=== PATIENT | male | born 1995 | race African-American/Black ===

== ENCOUNTER 2016-12-04 20:05 | Emergency (ER) | payer MEDICAID ==
--- NOTE | 2016-12-04 20:57 | ED Physician Chart ---
Chief Complaint/HPI - Patient Information Date Seen:: 12/04/16 Time Seen:: 20:52 Chief Complaint:: rt ankle injury History of Present Illness:: pt w rt ankle injury 2 wks ago. was playing sports and another player rolled over on his foot w his body. pt fell but denies any injury/pain except at rt ankle. he can bear weight. hurts to walk. no SHARMA, neck pain, abd p, cp etc.. moderate ache pain. Allergies:: Allergies Allergy/AdvReac Type Severity Reaction Status Date / Time Sulfa (Sulfonamide Allergy Verified 12/04/16 20:17 Antibiotics) Vitals:: Vital Signs - 8 hr 12/04/16 20:10 Temp 98.8 F HR 87 RR 18 BP 142/54 Historian:: Patient, Family Member (m) Review of Systems - Review of Systems General/Constitutional: No fever, No chills, No weight loss, No weakness, No diaphoresis, No edema, No loss of appetite Skin: No skin lesions, No rash, No bruising Head: No headache, No light-headedness Eyes: No loss of vision, No pain, No diplopia ENT: No earache, No nasal drainage, No sore throat, No tinnitus Neck: No neck pain, No swelling, No thyromegaly, No stiffness, No mass noted Cardio Vascular: No chest pain, No palpitations, No PND, No orthopnea, No edema Pulmonary: No SOB, No cough, No sputum, No wheezing GI: No nausea, No vomiting, No diarrhea, No pain, No melena, No hematochezia, No constipation, No hematemesis G/U: No dysuria, No frequency, No hematuria Musculoskeletal: Bone or joint pain (rt ankle pain), No back pain, No muscle pain Endocrine: No polyuria, No polydipsia Psychiatric: No prior psych history, No depression, No anxiety, No suicidal ideation Hematopoietic: No bruising, No lymphadenopathy Allergic/Immuno: No urticaria, No angioedema Neurological: No syncope, No focal symptoms, No weakness, No paresthesia, No headache, No seizure, No dizziness, No confusion, No vertigo Past Medical History - Past Medical History Past Medical History: No significant medical hx Social History: Lives With Parents Surgical History: None Medication: Reviewed Family Medical History - Family Member Mother History Unknown: Yes Ethnicity: Non- Living Status: Still Living Physical Exam - Physical Examination General/Constitutional: Awake, Well-developed, well-nourished, Alert, No distress, GCS 15, Non-toxic appearing, Ambulatory Head: Atraumatic Eyes: Lids, conjuctiva normal, PERRL, EOMI Skin: Nl inspection, No rash, No skin lesions, No ecchymosis, Well hydrated, No lymphadenopathy ENMT: External ears, nose nl, Nasal exam nl, Lips, teeth, gums nl Neck: Nontender, Full ROM w/o pain, No JVD, No nuchal rigidity, No bruit, No mass, No stridor Respiratory: Nl effort/Exclusion, Clear to Auscultation, No Wheeze/Rhonchi/Rales Cardio Vascular: RRR, No murmur, gallop, rubs, NL S1 S2 GI: No tenderness/rebounding/guarding, No organomegaly, No hernia, Normal BS's, Nondistended, No mass/bruits, No McBurney tenderness : No CVA tenderness Extremities: No tenderness or effusion, Full ROM, normal strength in all extremities, No edema, Normal digits & nails Other Extremities comments:: rt ankle is tndr at lateral malleolus and just anterior also. no vis edema or discoloration. ok rom. cap refill brisk. no tib/fib tndrness nor knee or prox leg tndrness. Neuro/Psych: Alert/oriented, DTR's symmetric, Normal sensory exam, Normal motor strength, Judgement/insight normal, Mood normal, Normal gait, No focal deficits Misc: normal gait, Normal back, No paraspinal tenderness Labs/Radiology/EKG Results - Radiology Results Results: rt ankle no fx//wnl ED Septic Shock - . Is Septic Shock (SBP<90, OR Lactate>4 mmol\L) present?: No - <6hrs of presentation: Vital Signs: Vital Signs - 8 hr 12/04/16 20:10 Temp 98.8 F HR 87 RR 18 BP 142/54 Reassessment (Disposition) - Reassessment Reassessment Condition:: Improved - Diagnosis Diagnosis:: rt ankle sprain - Aftercare/Follow up Instructions Aftercare/Follow-Up Instructions:: Counseled pt & family regarding lab results/ diagnosis & need follow up Notes:: use yuri and crutches. see pmd in 1 wk for rechk. ice and /or motrin for pain. return if further problems. - Patient Disposition Discharge/Transfer:: Home Condition at Disposition:: Improved
--- NOTE | 2016-12-05 11:29 | Diagnostic Imaging Report ---
Right ankle (3 views) HISTORY: Pain No acute bony abnormalities. No fractures. Joint spaces appear normal. IMPRESSION: No acute abnormalities In the presence of recent trauma and persistent symptoms, a repeat radiograph in 5-7 days may be helpful for detection of a subtle or occult fracture.
== END 2016-12-04 21:00 | disposition home or self-care (01) ==
LOC: ER 20:05
DX: S93.401A Sprain of unspecified ligament of right ankle, initial encounter (principal); Z88.2 Allergy status to sulfonamides; X58.XXXA Exposure to other specified factors, initial encounter; Y93.79 Activity, other specified sports and athletics; Y92.89 Other specified places as the place of occurrence of the external cause; Y99.8 Other external cause status
CPT/HCPCS: 73610-RT-TC; Z7502

== ENCOUNTER 2016-12-10 04:22 | Emergency (ER) | payer MEDICAID ==
--- NOTE | 2016-12-10 04:50 | ED Physician Chart ---
Chief Complaint/HPI - Patient Information Date Seen:: 12/10/16 Time Seen:: 04:25 Chief Complaint:: hand laceration History of Present Illness:: 20-year-old male with acute, moderate, multiple right hand lacerations that happened about 20 minutes prior to arrival when he cut his hand on a broken car window. Has associated burning pain. Allergies:: Allergies Allergy/AdvReac Type Severity Reaction Status Date / Time Sulfa (Sulfonamide Allergy Verified 12/10/16 04:42 Antibiotics) Historian:: Patient Review:: Nurse's Note Reviewed Review of Systems - Review of Systems Other: Complete system review otherwise unremarkable except as noted in HPI. Past Medical History - Past Medical History Past Medical History: No significant medical hx Family History: None Social History: Non Smoker, No Alcohol, No Drug Use, Other (student) Surgical History: None Psychiatricy History: None Medication: None Family Medical History - Family Member Mother History Unknown: Yes Ethnicity: Non- Living Status: Still Living Physical Exam - Physical Examination Other:: INITIAL VITAL SIGNS: Reviewed by me GENERAL: Alert and interactive. No acute distress HEAD: Head is normocephalic and atraumatic EYES: EOMI. . No scleral icterus. No conjunctival injection ENT: Moist mucous membranes. NECK: Supple. No masses. Full range of motion RESPIRATORY: No tachypnea. Clear breath sounds bilaterally. No wheezing, rales, or rhonchi CV: Regular rate and rhythm. No murmurs, rubs, or gallops ABDOMEN: Soft, non-distended, non-tender. No guarding. No rebound. No masses. EXTREMITIES: Right hand has multiple superficial lacerations to the dorsum. There is good movement of the entire hand with good neurovascular status to the distal tips of the fingers. SKIN: Warm and dry. No obvious rashes. NEUROLOGIC: Alert and oriented. Face is symmetric. Speech is normal. Moves all extremities equally. Motor and sensory distally intact. Assessment - Procedures Procedures:: Laceration Repair with dermabond by me: Anesthesia: None Location: Right hand Tendon/Joint/Nerves: No injury Foreign body: None detected after copious irrigation and exploration Technique: Tissue adhesive Complexity: No subcutaneous sutures/mucosal repair/edge excision Post Closure Length: 1 cm Patient's bleeding was easily controlled in the department and there is no indication of anemia. No evidence of compartment syndrome, neurologic injury, vascular injury, open joint, tendon laceration, or foreign body. Patient is appropriate for outpatient follow up. 48 hour wound check. Scar minimization instructions given. Laceration Repair with dermabond by me: Anesthesia: None Location: Right hand Tendon/Joint/Nerves: No injury Foreign body: None detected after copious irrigation and exploration Technique: Tissue adhesive Complexity: No subcutaneous sutures/mucosal repair/edge excision Post Closure Length: 0.5 cm Patient's bleeding was easily controlled in the department and there is no indication of anemia. No evidence of compartment syndrome, neurologic injury, vascular injury, open joint, tendon laceration, or foreign body. Patient is appropriate for outpatient follow up. 48 hour wound check. Scar minimization instructions given. ED Septic Shock - . Is Septic Shock (SBP<90, OR Lactate>4 mmol\L) present?: No Reassessment (Disposition) - Reassessment Reassessment:: 2 lacerations Dermabond. One was 1 cm long was 0.5 cm. Patient tolerated well. All lacerations are superficial. All lacerations are explored no is no evidence of any foreign body. Provided prescription for Augmentin for prophylaxis if there are signs of infection. Follow-up PCP 1-2 days. Gave return to ER precautions. Patient understands and agrees the plan. Reassessment Condition:: Improved - Diagnosis Diagnosis:: Lacerations, right hand - Aftercare/Follow up Instructions Aftercare/Follow-Up Instructions:: Counseled pt regarding lab results/diagnosis & need follow up, Refer to Discharge Instructions Medication Prescribed:: Augmentin - Patient Disposition Discharge/Transfer:: Home Time:: 04:54 Condition at Disposition:: Improved ED Discharge Plan - Patient Disposition Admit/Discharge/Transfer: PT DISCHARGED HOME Condition at Disposition: Improved Instructions: Tissue Adhesive Wound Care, [id number]
== END 2016-12-10 05:20 | disposition home or self-care (01) ==
LOC: ER 04:22
DX: S61.411A Laceration without foreign body of right hand, initial encounter (principal); W25.XXXA Contact with sharp glass, initial encounter; Y93.89 Activity, other specified; Y92.89 Other specified places as the place of occurrence of the external cause; Y99.8 Other external cause status
CPT/HCPCS: 99283; 12001; Q0162; A4217; X7704; Z7502; Z7610

== ENCOUNTER 2017-08-10 17:03 | Emergency (ER) | payer MEDICAID ==
--- NOTE | 2017-08-10 17:47 | ED Physician Chart ---
ED Chief Complaint/HPI - Patient Information Date Seen:: 08/10/17 Time Seen:: 17:20 Chief Complaint:: LEFT KNEE INJURY PLAYING FOOTBALL LAST NIGHT History of Present Illness:: THIS 21 YEAR OLD MALE WAS PLAYING COLLEGE FOOT WHEN HE SUSTAINED AN INJURY TO HIS LEFT KNEE WHILE BEING TACKLED. PT IS ABLE TO WEIGHT BEAR BUT IS UNABLE TO FLEX HIS KNEE MORE THAN 5-10 DEGREES. PT RATES SEVERITY OF THE PAIN 8/10. WORSE WITH MOVEMENT. LESS PAIN WITH DECREASED MOVEMENT. THE PT FELT A "POP" WHEN THE INJURY OCCURRED. MINIMAL SWELLING OF THE KNEE. ALSO HAS MILD PAIN IN THE 2ND MP OF HIS LEFT HAND. DENIES ANY HEAD OR NECK INJURIES. NO HEADACHE OR LOC. NO NUMBNESS OR WEAKNESS IN OTHER EXTREMITIES. Allergies:: Allergies Allergy/AdvReac Type Severity Reaction Status Date / Time Sulfa (Sulfonamide Allergy Verified 12/10/16 04:42 Antibiotics) SULFA DRUGS Vitals:: Vital Signs - 8 hr 08/10/17 17:13 Temp 97.5 F HR 71 RR 18 BP 144/61 Historian:: Patient ED Review of Systems - Review of Systems General/Constitutional: No fever, No chills, No weakness, No diaphoresis, Loss of appetite Skin: No skin lesions, No rash, No bruising Head: No headache, No light-headedness Eyes: No loss of vision, No pain, No diplopia ENT: No earache, No sore throat, No tinnitus Neck: No neck pain, No swelling, No stiffness, No mass noted Cardio Vascular: No chest pain, No orthopnea, No edema Pulmonary: No SOB, No cough, No sputum, No wheezing GI: No nausea, No vomiting, No diarrhea, No pain, No hematemesis G/U: No dysuria, No frequency, No hematuria, No nacturia Musculoskeletal: Bone or joint pain (LT KNEE AND LT INDEX M-P DISCOMFORT.), No back pain, No muscle pain Psychiatric: Prior psych history, No depression, No anxiety, No suicidal ideation Hematopoietic: No bruising, No lymphadenopathy Allergic/Immuno: No urticaria, No angioedema Neurological: No syncope, No focal symptoms, No paresthesia, No headache, No seizure, No dizziness, No confusion, No vertigo ED Past Medical History - Past Medical History Past Medical History: No significant medical hx Surgical History: None Psychiatricy History: None Family Medical History - Family Member Mother History Unknown: Yes Ethnicity: Non- Living Status: Still Living ED Physical Exam - Physical Examination General/Constitutional: Awake, Well-developed, well-nourished, Alert, No distress, Non-toxic appearing, Ambulatory Head: Atraumatic Other Head comments:: No visible or palpable evidence of head injury. Eyes: Lids, conjuctiva normal, PERRL, EOMI Skin: Nl inspection, No rash, No skin lesions, No ecchymosis, Well hydrated, No lymphadenopathy ENMT: External ears, nose nl, TM canals nl, Nasal exam nl, Lips, teeth, gums nl , Oropharynx nl, Tonsils nl Neck: Nontender, Full ROM w/o pain, No JVD, No nuchal rigidity, No bruit, No mass, No stridor Respiratory: Nl effort/Exclusion, Clear to Auscultation, No Wheeze/Rhonchi/Rales Other Respiratory comments:: No chest wall tenderness or crepitus to palpation. Cardio Vascular: No murmur, gallop, rubs, NL S1 S2 Other Cardio Vascular comments:: The patient had normal peripheral pulses in both wrists and feet. These pulses were readily palpable and strong. GI: No tenderness/rebounding/guarding, No organomegaly, No hernia, Normal BS's, Nondistended : No CVA tenderness, NL external genitalia Other Extremities comments:: The patient had mild tenderness on palpation over the index finger MP joint. No deformities. Normal capillary refill. The patient had no swelling or observed distortion of the left knee. There was mild tenderness over the upper pole of the patella. The patient had very limited range of motion of the knee with passive range of motion of approximately 10. With active range of motion the patient was able to flex the knee to 90. As noted above, the patient had good pulses in the left foot. No ankle or foot tenderness. Neuro/Psych: Alert/oriented, Normal sensory exam, Normal motor strength, Judgement/insight normal, Mood normal, No focal deficits Misc: Normal back, No paraspinal tenderness ED Labs/Radiology/EKG Results - Lab Results Results: X-R of LEFT HAND: 3 VIEWS. NO ACUTE FRACTURES OR DISLOCATIONS. NO SOFT TISSUE SWELLING: IMPRESSION: NO ACUTE TRAUMATIC FINDINGS. XAY LEFT KNEE: 3 VIEWS SMALL AVULSION FRACTURE OF THE UPPER POLE OF THE PATELLA. NO FRACTURE OF EITHER THE FEMUR OR TIBIAL PLATEAU. NO SOFT TISSUE FOREIGN BODIES. IMPRESSION: SMALL AVULSION FX OF THE UPPER POLE OF THE PATELLA. NO Laboratory studies were indicated. ED Assessment - Assessment General Assessment: CASE SUMMARY: this 21-year-old male presents with a history of knee injury while playing football last evening. He is able to weight bear in the left lower extremity but has very limited range of motion at the knee. On physical examination there was minimal swelling of the knee or tenderness to palpation. X -ray study of the left knee showed what appeared to be an Small avulsion fracture of the upper pole of the patella. the patient was placed in a knee immobilizer and was able to ambulate with minimal discomfort. He was discharged with prescriptions for ibuprofen 800 mg and [place] 10/325. He was given the usual precautions regarding mixing the [place] with alcohol, and not taking it within six hours of driving or activities requiring alertness. He was given a note recommending orthopedic referral and consultation for his knee injury. I also recommended an MR scam be obtained to rule out internal derangements of soft tissues within the knee. MDM DDX TRAUMATIC KNEE INJURY: NOT Closed tibial plateau fracture based on x- ray studies. NOT Fracture of the distal femur based on negative x-ray studies. NOT Traumatic dislocation of the knee based on the patient's history and my physical examination. The patient had no impairment of distal pulses, sensation or motor function in the foot. ED Septic Shock - . Is Septic Shock (SBP<90, OR Lactate>4 mmol\\L) present?: No - <6hrs of presentation: Vital Signs: Vital Signs - 8 hr 08/10/17 17:13 Temp 97.5 F HR 71 RR 18 BP 144/61 ED Reassessment (Disposition) - Reassessment Reassessment Condition:: Improved - Diagnosis Diagnosis:: AVULSION FRACTURE UPPER POLE OF LEFT PATELLA. INTERNAL DERANGEMENT SOFT TISSUE INJURY CANNOT BE RULED OUT ED Discharge Plan - Patient Disposition Admit/Discharge/Transfer: PT DISCHARGED HOME Condition at Disposition: Stable Prescriptions: Hydrocodone/APAP 10 mg/325 mg [[place] 10 mg/325 mg] 1 tab PO Q6H PRN #10 tab PRN Reason: Severe Pain Ibuprofen [Motrin*] 800 mg PO Q8H PRN #20 tab PRN Reason: Pain (Moderate) Instructions: Avulsion Fracture Additional Instructions: Pt. to DC home. Limited weight bearing on left knee. Pt. to follow-up with Sports Medicine Doctor. Forms: School Release Form, Work Release Form
--- NOTE | 2017-08-11 07:50 | Diagnostic Imaging Report ---
Left knee 3 views Indication: Trauma Comparison: none Findings: Mild degenerative changes are noted with mild narrowing of the medial knee compartment. No evidence of an acute fracture or gross effusion. Distal quadriceps spurring is noted. There is mild soft tissue swelling of the prepatellar region. Impression: No evidence of an acute fracture. Mild soft tissue swelling of the prepatellar region is noted. Mild degenerative changes. In the setting of trauma, if clinical symptoms persist and there is continued concern for an occult fracture, follow up exams in 5-7 days is suggested.
--- NOTE | 2017-08-11 07:52 | Diagnostic Imaging Report ---
Left hand 3 views Indication: pain Comparison: none Findings: Mild degenerative changes are seen with what appears to be osteophytic spurring along the dorsal carpometacarpal region. No evidence of acute fracture or dislocation. There is mild soft tissue swelling adjacent to the fifth metacarpal. Impression: Mild soft tissue swelling adjacent to the fifth metacarpal. No acute fracture is identified. Mild degenerative changes including osteophytic spurring along the dorsal carpometacarpal region best seen on the lateral views. In the setting of trauma, if clinical symptoms persist and there is continued concern for an occult fracture, follow up exams in 5-7 days is suggested.
== END 2017-08-10 19:05 | disposition home or self-care (01) ==
LOC: ER 17:03
DX: S82.002A Unspecified fracture of left patella, initial encounter for closed fracture (principal); Z88.2 Allergy status to sulfonamides; X58.XXXA Exposure to other specified factors, initial encounter; Y93.61 Activity, american tackle football; Y92.89 Other specified places as the place of occurrence of the external cause; Y99.8 Other external cause status
CPT/HCPCS: 29505; 73130-TC-LT; 73562-TC-LT; J2270; Z7502

== ENCOUNTER 2017-08-14 20:17 | Emergency (ER) | payer MEDICAID ==
--- NOTE | 2017-08-14 21:25 | ED Physician Chart ---
ED Chief Complaint/HPI - Patient Information Date Seen:: 08/14/17 Time Seen:: 21:00 Chief Complaint:: left knee pain History of Present Illness:: Patient was seen here 4 days ago for an injury to his left knee. He was playing football and fell striking his knee on the ground. X-ray of his left knee was taken here. Patient has continuing left knee pain. Allergies:: Allergies Allergy/AdvReac Type Severity Reaction Status Date / Time Sulfa (Sulfonamide Allergy Verified 12/10/16 04:42 Antibiotics) Vitals:: Vital Signs - 8 hr 08/14/17 20:20 Temp 97.9 F HR 59 RR 18 BP 126/68 O2 Sat % 99 Historian:: Patient Review:: Nurse's Note Reviewed ED Review of Systems - Review of Systems General/Constitutional: No fever, No chills Skin: No skin lesions Head: No headache Eyes: No loss of vision ENT: No earache Neck: No neck pain, No swelling Cardio Vascular: No chest pain Pulmonary: No SOB, No cough, No sputum GI: No nausea, No vomiting, No diarrhea G/U: No dysuria, No hematuria, No nacturia Musculoskeletal: Bone or joint pain Psychiatric: No prior psych history Hematopoietic: No bruising Allergic/Immuno: No urticaria Neurological: No syncope ED Past Medical History - Past Medical History Past Medical History: No significant medical hx Family History: None Social History: Non Smoker, No Alcohol Surgical History: None Psychiatricy History: None Medication: None Family Medical History - Family Member Mother History Unknown: Yes Ethnicity: Non- Living Status: Still Living ED Physical Exam - Physical Examination General/Constitutional: Well-developed, well-nourished, Alert, No distress Head: Atraumatic Eyes: Lids, conjuctiva normal, PERRL Skin: Nl inspection, No rash ENMT: External ears, nose nl, TM canals nl, Nasal exam nl, Lips, teeth, gums nl Neck: No nuchal rigidity Respiratory: Nl effort/Exclusion, Clear to Auscultation Cardio Vascular: RRR, No murmur, gallop, rubs GI: No tenderness/rebounding/guarding, No organomegaly, No hernia : No CVA tenderness Other Extremities comments:: Left knee: No swelling; 20-25 of flexion only; point tenderness at 11:00 adjacent to the patella mild tenderness medial joint line; Neuro/Psych: No focal deficits Misc: Normal back, No paraspinal tenderness ED Assessment - Assessment General Assessment: A knee immobilizer will be applied. Patient told it pain continues he should see an orthopedist for the possible ordering of an MRI of his knee ED Septic Shock - . Is Septic Shock (SBP<90, OR Lactate>4 mmol\L) present?: No - <6hrs of presentation: Vital Signs: Vital Signs - 8 hr 08/14/17 20:20 Temp 97.9 F HR 59 RR 18 BP 126/68 O2 Sat % 99 ED Reassessment (Disposition) - Reassessment Reassessment Condition:: Unchanged - Diagnosis Diagnosis:: Sprain left knee - Aftercare/Follow up Instructions Aftercare/Follow-Up Instructions:: Refer to Discharge Instructions Medication Prescribed:: Prescription for [place] 10/325 #12 to take 1 4 times a day as necessary for pain. - Patient Disposition Condition at Disposition:: Stable, Unchanged
== END 2017-08-14 21:32 | disposition home or self-care (01) ==
LOC: ER 20:17
DX: S83.92XA Sprain of unspecified site of left knee, initial encounter (principal); Z88.2 Allergy status to sulfonamides; W19.XXXA Unspecified fall, initial encounter; Y93.61 Activity, american tackle football; Y92.89 Other specified places as the place of occurrence of the external cause; Y99.8 Other external cause status
CPT/HCPCS: 29505; Z7502

== ENCOUNTER 2018-02-19 14:48 | Emergency (ER) | payer MEDICAID ==
--- NOTE | 2018-02-19 15:22 | ED Physician Chart ---
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 Then, he was unable to hold the weight and the weight dropped on his chest without causing any damage to the chest. Twenty minutes later, patient drove himself with the left hand to the ER. Allergies:: Allergies Allergy/AdvReac Type Severity Reaction Status Date / Time Sulfa (Sulfonamide Allergy Verified 12/10/16 04:42 Antibiotics) ED Review of Systems - Review of Systems General/Constitutional: No fever Skin: No rash Head: No light-headedness Eyes: No pain ENT: No nasal drainage Neck: No neck pain Cardio Vascular: No chest pain Pulmonary: No SOB GI: No nausea, No vomiting Musculoskeletal: Muscle pain Neurological: No focal symptoms ED Past Medical History - Past Medical History Past Medical History: No significant medical hx Social History: Non Smoker, No Alcohol, No Drug Use Surgical History: None Family Medical History - Family Member Mother History Unknown: Yes Ethnicity: Non- Living Status: Still Living ED Physical Exam - Physical Examination General/Constitutional: Awake Eyes: PERRL Skin: No ecchymosis ENMT: Nasal exam nl Neck: No nuchal rigidity Respiratory: No Wheeze/Rhonchi/Rales Cardio Vascular: RRR, No murmur, gallop, rubs, NL S1 S2 GI: No tenderness/rebounding/guarding Other Extremities comments:: Tenderness on the right shoulder along the path of biceps brachii tendon short head. Painful and limited ROM of flexion of the right shoulder joint. Flexion of the right elbow joint appeared intact. There was no abnormal bulging of the the right biceps brachii. Neuro/Psych: Normal sensory exam, No focal deficits ED Assessment - Assessment General Assessment: Soft tissue injury of the right biceps brachii tendon, likely the short head Assessment/Comments:: Icing on the right anterior shoulder Toradol 30mg IM (patient refused) Tramadol 50mg PO x 1 Recommended the patient to go to an ER with MRI ED Septic Shock - . Is Septic Shock (SBP<90, OR Lactate>4 mmol\\L) present?: No ED Reassessment (Disposition) - Reassessment Reassessment Condition:: Improved - Patient Disposition Discharge/Transfer:: Home ED Discharge Plan - Patient Disposition Admit/Discharge/Transfer: PT DISCHARGED HOME Condition at Disposition: Stable Instructions: Tendon Injury Accepting Physician: NO,PCP PER PATIENT [Other] not on staff,PCP is [Primary Care Provider] -
== END 2018-02-19 15:50 | disposition home or self-care (01) ==
LOC: ER 14:48
DX: S46.201A Unspecified injury of muscle, fascia and tendon of other parts of biceps, right arm, initial encounter (principal); Z88.2 Allergy status to sulfonamides; X58.XXXA Exposure to other specified factors, initial encounter; Y93.89 Activity, other specified; Y92.89 Other specified places as the place of occurrence of the external cause; Y99.8 Other external cause status
CPT/HCPCS: Z7502

== ENCOUNTER 2018-04-21 22:47 | Emergency (ER) | payer MEDICAID ==
--- NOTE | 2018-04-21 22:52 | ED Physician Chart ---
ED Chief Complaint/HPI - Patient Information Date Seen:: 04/21/18 Time Seen:: 22:52 Chief Complaint:: Abdominal pain History of Present Illness:: 22 yo male had abdominal pain for one day. The pain was in epigastric area, dull pain, 7/10, with decreased appetite. Patient denied fever, nausea, vomiting or diarrhea. Allergies:: Allergies Allergy/AdvReac Type Severity Reaction Status Date / Time Sulfa (Sulfonamide Allergy Verified 02/19/18 15:29 Antibiotics) ED Review of Systems - Review of Systems General/Constitutional: No fever Skin: No rash Head: No headache Eyes: No pain ENT: No nasal drainage Neck: No neck pain Cardio Vascular: No chest pain Pulmonary: No SOB GI: No nausea, No vomiting, No diarrhea, Pain Musculoskeletal: Muscle pain Neurological: No focal symptoms ED Past Medical History - Past Medical History Past Medical History: No significant medical hx, Other (Soft tissue injury of the right biceps brachii tendon) Social History: Non Smoker, No Alcohol, Illicit Drug Use (Marijuana) Surgical History: None Family Medical History - Family Member Mother History Unknown: Yes Ethnicity: Non- Living Status: Still Living ED Physical Exam - Physical Examination General/Constitutional: Awake Head: Atraumatic Eyes: PERRL Skin: No skin lesions ENMT: Nasal exam nl Neck: No nuchal rigidity Respiratory: Clear to Auscultation, No Wheeze/Rhonchi/Rales Cardio Vascular: RRR, No murmur, gallop, rubs, NL S1 S2 Other GI comments:: Epigastric tenderness Extremities: normal strength in all extremities Neuro/Psych: No focal deficits ED Labs/Radiology/EKG Results - Radiology Results Results: CT abdomen/pelvis wo contrast: No evidence of bowel obstruction or colitis. Appendix not well visualized, no findings suggest acute appendicitis. No free fluid or air. Phleboliths in the pelvis. ED Assessment - Assessment General Assessment: Abdominal pain Gastroenteritis Assessment/Comments:: CBC, CMP, lipase, amylase (Patient refused blood drawn) UA, urine drug screen CT abdomen/pelvis wo contrast Pantoprazole 40mg PO 1 tab Maalox 15ml po Lidocaine viscous 2% 15ml po D/c home F/u PCP or return to ER if symptoms worsen ED Septic Shock - . Is Septic Shock (SBP<90, OR Lactate>4 mmol\L) present?: No ED Reassessment (Disposition) - Reassessment Reassessment Condition:: Improved - Patient Disposition Discharge/Transfer:: Home
[2018-04-21 23:15] LABS: URINE MICROSCOPIC INDICATED? YES; URINE SOURCE RANDOM
[2018-04-21 23:16] LABS: URINE BILIRUBIN NEGATIVE (NEGATIVE); URINE BLOOD TRACE (NEGATIVE); URINE GLUCOSE (UA) NEGATIVE (NEGATIVE); URINE KETONE NEGATIVE (NEGATIVE); URINE LEUKOCYTE ESTERASE NEGATIVE (NEGATIVE); URINE NITRATE NEGATIVE (NEGATIVE); URINE PH 5.5 (4.6 - 8.0); URINE PROTEIN 30 mg/dL (NEGATIVE); URINE UROBILINOGEN 0.2 E.U./dL (0.2 - 1.0)
[2018-04-21] MEDS ORDERED: Pantoprazole 40 mg EC Tab PO STA (23:16)
[2018-04-21] MEDS ORDERED: Pantoprazole 40 mg EC Tab PO ONE (23:16)
[2018-04-21 23:30] LABS: URINE CLARITY CLEAR (CLEAR); URINE COLOR YELLOW
[2018-04-21 23:31] LABS: AMPHETAMINE URINE NEGATIVE (NEGATIVE); BARBITURATES URINE NEGATIVE (NEGATIVE); BENZODIAZEPINES QUAL URINE NEGATIVE (NEGATIVE); CANNABINOID THC POSITIVE (NEGATIVE); COCAINE METABOLITE QUAL URINE NEGATIVE (NEGATIVE); METHADONE URINE NEGATIVE (NEGATIVE); METHAMPHETAMINES QUAL URINE NEGATIVE (NEGATIVE); OPIATES (MORPHINE) QUAL. URINE NEGATIVE (NEGATIVE); PHENCYCLIDINE (PCP) URINE NEGATIVE (NEGATIVE); TRICYCLICS (TCA) QUAL. URINE NEGATIVE (NEGATIVE); URINE RBC 0-2 /hpf (0-5); URINE WBC 0-2 /hpf (0-5)
[2018-04-21 23:32] LABS: URINE BACTERIA OCCASIONAL /hpf (NONE SEEN); URINE EPITHELIAL CELLS FEW /lpf (FEW)
[2018-04-22] MEDS ORDERED: Maalox 30 mL Cup PO ONE (01:31)
[2018-04-22] MEDS ORDERED: Donnatal Liq 5 ML UDC PO STA (01:32)
[2018-04-22] MEDS ORDERED: Maalox 30 mL Cup ONE (01:39)
--- NOTE | 2018-04-22 09:16 | Diagnostic Imaging Report ---
Exam: CT examination abdomen pelvis. HISTORY: Abdominal pain. Total DLP equals 381 CTDI equals 7.8 Findings: Multiple contiguous thin section abdomen pelvis obtained from lower thorax to pubic symphysis without the administration intravenous or oral contrast material. No prior studies available comparison. The study extremely limited without administration intravenous or oral contrast material, lacunar intra-abdominal fat planes. The study demonstrates normal appearance of liver parenchyma. Large amount of for content is noted throughout the stomach. The kidneys demonstrate no evidence of obstructive uropathy or nephrolithiasis. No free fluid is noted. Appendix not visualized. There is no evidence of diverticulitis. The the urinary bladder is intact. IMPRESSION: Extremely limited examination due to lack of oral or intravenous contrast material. The study is limited due to lack of fat planes throughout the abdomen Essentially unremarkable examination. If clinically indicated follow-up examination with contrast material might be helpful.
== END 2018-04-22 02:00 | disposition home or self-care (01) ==
LOC: ER 22:47
DX: K52.9 Noninfective gastroenteritis and colitis, unspecified (principal); Z88.2 Allergy status to sulfonamides
CPT/HCPCS: 80307; 81001-TC; Z7502; Z7610

== ENCOUNTER 2018-07-18 15:52 | Emergency (ER) | payer MEDICAID ==
--- NOTE | 2018-07-18 16:20 | ED Physician Chart ---
ED Chief Complaint/HPI - Patient Information Date Seen:: 07/11/18 Time Seen:: 16:14 Chief Complaint:: VD CONTACT History of Present Illness:: THIS IS A 22 YO MALE WHO STATES THAT HE HAD SEX WITH ANOTHER PERSON AND STATES THAT HE HAS BEEN EXPOSED TO CHLAMYDIA. HE DENIES HAVING ANY SYMPTOMS OR DISCHARGE. Allergies:: Allergies Allergy/AdvReac Type Severity Reaction Status Date / Time Sulfa (Sulfonamide Allergy Verified 04/21/18 22:57 Antibiotics) Vitals:: Vital Signs - 8 hr 07/18/18 16:05 Temp 99.1 F HR 61 RR 15 BP 113/61 O2 Sat % 99 Historian:: Patient Review:: Nurse's Note Reviewed, Old Chart Reviewed ED Review of Systems - Review of Systems General/Constitutional: No fever, No chills, No weight loss, No weakness, No diaphoresis, No edema, No loss of appetite Skin: No skin lesions, No rash, No bruising Head: No headache, No light-headedness Eyes: No loss of vision, No pain, No diplopia ENT: No earache, No nasal drainage, No sore throat, No tinnitus Neck: No neck pain, No swelling, No thyromegaly, No stiffness, No mass noted Cardio Vascular: No chest pain, No palpitations, No PND, No orthopnea, No edema Pulmonary: No SOB, No cough, No sputum, No wheezing GI: No nausea, No vomiting, No diarrhea, No pain, No melena, No hematochezia, No constipation, No hematemesis G/U: No dysuria, No frequency, No hematuria Musculoskeletal: No bone or joint pain, No back pain, No muscle pain Endocrine: No polyuria, No polydipsia Psychiatric: No prior psych history, No depression, No anxiety, No suicidal ideation Hematopoietic: No bruising, No lymphadenopathy Allergic/Immuno: No urticaria, No angioedema Neurological: No syncope, No focal symptoms, No weakness, No paresthesia, No headache, No seizure, No dizziness, No confusion, No vertigo ED Past Medical History - Past Medical History Obtainable: Yes Past Medical History: No significant medical hx Family History: None Social History: Non Smoker, No Alcohol, No Drug Use, Employed Surgical History: None Psychiatricy History: None Medication: Reviewed Family Medical History - Family Member Mother History Unknown: Yes Ethnicity: Non- Living Status: Still Living ED Physical Exam - Physical Examination General/Constitutional: Awake, Well-developed, well-nourished, Alert, No distress, GCS 15, Non-toxic appearing, Ambulatory Head: Atraumatic Eyes: Lids, conjuctiva normal, PERRL, EOMI Skin: Nl inspection, No rash, No skin lesions, No ecchymosis, Well hydrated, No lymphadenopathy ENMT: External ears, nose nl, Nasal exam nl, Lips, teeth, gums nl Neck: Nontender, Full ROM w/o pain, No JVD, No nuchal rigidity, No bruit, No mass, No stridor Respiratory: Nl effort/Exclusion, Clear to Auscultation, No Wheeze/Rhonchi/Rales Cardio Vascular: RRR, No murmur, gallop, rubs, NL S1 S2 GI: No tenderness/rebounding/guarding, No organomegaly, No hernia, Normal BS's, Nondistended, No mass/bruits, No McBurney tenderness : No CVA tenderness Extremities: No tenderness or effusion, Full ROM, normal strength in all extremities, No edema, Normal digits & nails Neuro/Psych: Alert/oriented, DTR's symmetric, Normal sensory exam, Normal motor strength, Judgement/insight normal, Mood normal, Normal gait, No focal deficits Misc: Normal back, No paraspinal tenderness ED Assessment - Assessment General Assessment: CHLAMYDIA CONTACT ED Septic Shock - . Is Septic Shock (SBP<90, OR Lactate>4 mmol\L) present?: No - <6hrs of presentation: Vital Signs: Vital Signs - 8 hr 07/18/18 16:05 Temp 99.1 F HR 61 RR 15 BP 113/61 O2 Sat % 99 ED Reassessment (Disposition) - Reassessment Reassessment Condition:: Unchanged - Diagnosis Diagnosis:: CHLAMYDIA INFECTION - Aftercare/Follow up Instructions Aftercare/Follow-Up Instructions:: Counseled pt regarding lab results/diagnosis & need follow up, Refer to Discharge Instructions, Counseled pt & family regarding lab results/diagnosis & need follow up - Patient Disposition Discharge/Transfer:: Home Condition at Disposition:: Stable
== END 2018-07-18 16:14 | disposition home or self-care (01) ==
LOC: ER 15:52
DX: A74.9 Chlamydial infection, unspecified (principal); Z88.2 Allergy status to sulfonamides
CPT/HCPCS: 99283; 96372; J0696; Z7502